=== PATIENT | male | born 1990 | race Caucasian/White ===

== ENCOUNTER 2019-04-11 21:59 | Emergency (ER) | payer SELFPAY ==
--- NOTE | 2019-04-11 22:59 | ER ---
Nurse's Notes [facility] Name: Tevin Bueno Age: 28 yrs Sex: Male : 1990 Arrival Date: 04/11/2019 Time: 22:04 Bed 27 Private MD: Diagnosis: Sacroiliitis, not elsewhere classified;Sciatica, left side Presentation: 04/11 22:33 Presenting complaint: Patient states: i fell from a chair at work last week and landed mg2 on my butt and since i had lower back pain which is unbearable and i cant even stand up. Transition of care: patient was not received from another setting of care. Onset of symptoms was March 2019. Risk Assessment: Do you want to hurt yourself or someone else? Patient reports no desire to harm self or others. Initial Sepsis Screen: Does the patient meet any 2 criteria? No. Patient's initial sepsis screen is negative. Does the patient have a suspected source of infection? No. Patient's initial sepsis screen is negative. Care prior to arrival: None. 22:33 Method Of Arrival: Wheelchair mg2 22:33 Acuity: ISADORA 4 mg2 Triage Assessment: 22:39 General: Appears uncomfortable, Behavior is calm. Pain: Complains of pain in lower mg2 back. EENT: No deficits noted. Neuro: Level of Consciousness is awake, alert, obeys commands, Oriented to person, place, time, situation. Cardiovascular: Capillary refill < 3 seconds Patient's skin is warm and dry. Respiratory: Airway is patent Respiratory effort is even, unlabored, Respiratory pattern is regular, symmetrical. GI: No signs and/or symptoms were reported involving the gastrointestinal system. : No signs and/or symptoms were reported regarding the genitourinary system. Derm: Skin is intact, is healthy with good turgor, Skin is pink, warm \T\ dry. normal. Musculoskeletal: Circulation, motion, and sensation intact. Capillary refill < 3 seconds, Reports pain in back. Historical: - Allergies: 22:39 No Known Allergies; mg2 - Home Meds: 22:38 lisinopril 10 mg Oral tab 1 tab once daily [Active]; meloxicam 15 mg Oral tab 1 tab mg2 once daily [Active]; - PMHx: 22:38 Hypertension; mg2 - PSHx: 22:38 None; mg2 - Immunization history:: Flu vaccine status is unknown. - Social history:: Smoking status: Patient/guardian denies using tobacco, Patient uses alcohol, occasionally. Patient/guardian denies using street drugs, IV drugs. - Ebola Screening: : No symptoms or risks identified at this time. Screenin:37 Abuse screen: Denies threats or abuse. Denies injuries from another. Nutritional mg2 screening: No deficits noted. Tuberculosis screening: No symptoms or risk factors identified. Fall Risk Fall in past 12 months (25 points). Assessment: 22:40 Reassessment: see triage assessment. mg2 23:27 Reassessment: pt C/O pain and unable to sit up due to the pain. Notified Dr. Russell. ca1 Meds ordered and given. Pt requested to stay a few minutes, let meds kick in and pull himself up. Vital Signs: 22:34 BP 143 / 101; Pulse 93; Resp 18; Temp 98.9; Pulse Ox 95% on R/A; Weight 199.58 kg; mg2 Height 6 ft. 1 in. (185.42 cm); Pain 8/10; 22:34 Body Mass Index 58.05 (199.58 kg, 185.42 cm) mg2 ED Course: 22:04 Patient arrived in ED. ds1 22:14 Jose Luis Russell MD is Attending Physician. ps1 22:33 Bernabe Lerma, YOGI is Primary Nurse. mg2 22:34 Triage completed. mg2 22:37 Arm band placed on. mg2 22:39 Patient has correct armband on for positive identification. Pulse ox on. NIBP on. Door mg2 closed. 22:39 Patient did not have IV access during this emergency room visit. mg2 23:34 No provider procedures requiring assistance completed. mg2 Administered Medications: 23:29 Drug: TORadol 30 mg Route: IM; Site: right deltoid; ca1 23:50 Follow up: Response: No adverse reaction; Marked relief of symptoms mg2 23:50 Drug: Ramona 10 mg-325 mg 1 tabs Route: PO; mg2 23:50 Follow up: Response: No adverse reaction; Medication administered at discharge. mg2 Outcome: 22:59 Discharge ordered by . ps1 23:51 Discharged to home ambulatory, with family. mg2 23:51 Condition: good 23:51 Discharge instructions given to patient, family, Instructed on discharge instructions, follow up and referral plans. medication usage, Demonstrated understanding of instructions, follow-up care, medications, Prescriptions given X 3. 23:51 Patient left the ED. mg2 Signatures: Lyric Durham1 Jose Luis Russell MD MD ps1 Bernabe Lerma RN RN mg2 Emily Boswell RN RN ca1
--- NOTE | 2019-04-11 22:59 | EDPHYS ---
Physician Documentation [facility] Name: Tevin Bueno Age: 28 yrs Sex: Male : 1990 Arrival Date: 04/11/2019 Time: 22:04 Bed 27 Private MD: ED Physician Jose Luis Russell HPI: 04/11 22:54 This 28 yrs old Male presents to ER via Wheelchair with complaints of Back ps1 Pain. 22:54 patient states that he started having lower back pain without apparent cause. States ps1 that he felt as though he could not walk. No trauma, fever or urinary complaints. No saddle anesthesia. Has spasm. Pain rated as moderate, worse with movement. . Historical: - Allergies: 22:39 No Known Allergies; mg2 - Home Meds: 22:38 lisinopril 10 mg Oral tab 1 tab once daily [Active]; meloxicam 15 mg Oral tab 1 tab mg2 once daily [Active]; - PMHx: 22:38 Hypertension; mg2 - PSHx: 22:38 None; mg2 - Immunization history:: Flu vaccine status is unknown. - Social history:: Smoking status: Patient/guardian denies using tobacco, Patient uses alcohol, occasionally. Patient/guardian denies using street drugs, IV drugs. - Ebola Screening: : No symptoms or risks identified at this time. ROS: 22:54 Constitutional: Negative for fever, chills, and weight loss, Eyes: Negative for injury, ps1 pain, redness, and discharge, ENT: Negative for injury, pain, and discharge, Cardiovascular: Negative for chest pain, palpitations, and edema, Respiratory: Negative for shortness of breath, cough, wheezing, and pleuritic chest pain, Abdomen/GI: Negative for abdominal pain, nausea, vomiting, diarrhea, and constipation, MS/Extremity: Negative for injury and deformity, Skin: Negative for injury, rash, and discoloration, Neuro: Negative for headache, weakness, numbness, tingling, and seizure. 22:54 Back: Positive for pain with movement. Exam: 22:54 Constitutional: This is a well developed, well nourished patient who is awake, alert, ps1 and in no acute distress. Head/Face: Normocephalic, atraumatic. Eyes: Pupils equal round and reactive to light, extra-ocular motions intact. Lids and lashes normal. Conjunctiva and sclera are non-icteric and not injected. Chest/axilla: Normal chest wall appearance and motion. Nontender with no deformity. No lesions are appreciated. Cardiovascular: Regular rate and rhythm. No gallops, murmurs, or rubs. Normal PMI, no JVD. No pulse deficits. Respiratory: Lungs have equal breath sounds bilaterally, clear to auscultation and percussion. No rales, rhonchi or wheezes noted. No increased work of breathing, no retractions or nasal flaring. Abdomen/GI: Soft, non-tender, with normal bowel sounds. No distension or tympany. No guarding or rebound. No evidence of tenderness throughout. Skin: Warm, dry with normal turgor. Normal color with no rashes, no lesions, and no evidence of cellulitis. MS/ Extremity: Pulses equal, no cyanosis. Neurovascular intact. Full, normal range of motion. Neuro: Awake and alert, GCS 15, oriented to person, place, time, and situation. Cranial nerves II-XII grossly intact. Sensory grossly intact. 22:54 Back: pain, that is moderate, of the left scapular area, left low back and right mid back, left SI joint dysfunction. compensatory changes in thoracic and lumbar spine. HVLA performed and pain improved as well as ROM. . Vital Signs: 22:34 BP 143 / 101; Pulse 93; Resp 18; Temp 98.9; Pulse Ox 95% on R/A; Weight 199.58 kg; mg2 Height 6 ft. 1 in. (185.42 cm); Pain 8/10; 22:34 Body Mass Index 58.05 (199.58 kg, 185.42 cm) mg2 MDM: 22:54 Data reviewed: vital signs, nurses notes, and as a result, I will discharge patient. ps1 22:59 Patient medically screened. ps1 Administered Medications: 23:29 Drug: TORadol 30 mg Route: IM; Site: right deltoid; ca1 23:50 Follow up: Response: No adverse reaction; Marked relief of symptoms mg2 23:50 Drug: Jordan 10 mg-325 mg 1 tabs Route: PO; mg2 23:50 Follow up: Response: No adverse reaction; Medication administered at discharge. mg2 Disposition: 04/11/19 22:59 Discharged to Home. Impression: Sacroiliitis, not elsewhere classified, Sciatica, left side. - Condition is Stable. - Discharge Instructions: Sciatica. - Prescriptions for Anaprox DS 550 mg Oral Tablet - take 1 tablet by ORAL route every 12 hours As needed; 20 tablet. Robaxin 500 mg Oral Tablet - take 2 tablet by ORAL route every 6 hours As needed; 40 tablet. Medrol (Jai) 4 mg Oral Tablets, Dose Pack - take 1 tablet by ORAL route as directed - follow package instructions; 1 packet. - Medication Reconciliation Form, Thank You Letter, Antibiotic Education, Prescription Opioid Use form. - Follow up: Private Physician; When: As needed; Reason: Further diagnostic work-up, Recheck today's complaints, Continuance of care, Re-evaluation by your physician. Follow up: Emergency Department; When: As needed; Reason: Worsening of condition. - Problem is new. - Symptoms have improved. Signatures: Svetlana Servin RN RN bb Jose Luis Russell MD MD ps1 Bernabe Lerma RN RN mg2 Emily Boswell RN RN ca1 Corrections: (The following items were deleted from the chart) 23:51 22:59 04/11/2019 22:59 Discharged to Home. Impression: Sacroiliitis, not elsewhere mg2 classified; Sciatica, left side. Condition is Stable. Forms are Medication Reconciliation Form, Thank You Letter, Antibiotic Education, Prescription Opioid Use. Follow up: Private Physician; When: As needed; Reason: Further diagnostic work-up, Recheck today's complaints, Continuance of care, Re-evaluation by your physician. Follow up: Emergency Department; When: As needed; Reason: Worsening of condition. Problem is new. Symptoms have improved. ps1
[2019-04-11] MEDS ORDERED: KETOROLAC 30 MG/ML INJ ONE (23:39)
[2019-04-12] MEDS ORDERED: HYDROCODONE/APAP 10/325 TAB ONE (00:03)
== END 2019-04-11 23:51 | disposition home or self-care (01) ==
LOC: ER 21:59
DX: M46.1 Sacroiliitis, not elsewhere classified (principal); M54.32 Sciatica, left side; I10 Essential (primary) hypertension
CPT/HCPCS: 96372; 99283